=== PATIENT | female | born 1995 | race Two or more races ===

== ENCOUNTER 2025-02-23 06:00 | Day surgery (SDC) | payer OTHER ==
[2025-02-19 10:50] VITALS: BP 111/76
[2025-02-19 11:07] LABS: BASO % 0.4 % (0.1-1.2); EOS # 0.13 (0.04-0.54); EOS % 1.9 % (0.7-7.0); HEMATOCRIT 41.5 % (34.1-44.9); HEMOGLOBIN 13.6 g/dL (11.2-15.7); LYMPH # 2.25 (1.18-3.74); LYMPH % 33.3 % (19.3-53.1); MEAN CORPUSCULAR HEMOGLOBIN 28.6 pg (25.6-32.2); MONO # 0.36 (0.24-0.82); MONO % 5.3 % (4.7-12.5); NEUT # 3.97 (1.56-6.13); PLATELET COUNT 194 K/uL (163-369); RED BLOOD COUNT 4.75 M/uL (3.93-5.22); RED CELL DISTRIBUTION WIDTH 12.6 % (11.6-14.4)
[2025-02-19 11:38] LABS: INR 1.02; PARTIAL THROMBOPLASTIN TIME 24.8 SECONDS (22.0-34.0); PROTHROMBIN TIME 11.1 SECONDS (9.0-11.5)
[2025-02-19 11:48] LABS: ALBUMIN 3.7 gm/dL (3.4-5.0); BILIRUBIN TOTAL 0.29 mg/dL (0.3-1.2); CALCIUM 9.2 mg/dL (8.5-10.1); CREATININE SERUM 0.62 mg/dL (0.55-1.02); GFR 113.02; GLOBULINA 3.5 G/DL (2.4-3.5); POTASSIUM 4.77 mEq/L (3.5-5.1); TOTAL PROTEIN 7.2 gm/dL (6.4-8.2)
[~2025-02-23] VITALS: Ht 157.5 cm; Wt 65.3 kg
[2025-02-23] MEDS ORDERED: CEFTRIAXONE SODIUM 2,000 MG VIAL ONE (07:58)
[2025-02-23] MEDS ORDERED: METRONIDAZOLE/SODIUM CHLORIDE 500 MG/100 ML PIGGYBACK IV ONE (07:58)
[2025-02-23] MEDS ORDERED: POVIDONE-IODINE 118 ML BOTT TOP ONE (11:51)
[2025-02-23] MEDS ORDERED: DIBUCAINE 30 GM TUBE ONE (11:51)
[2025-02-23] MEDS ORDERED: HEMOSTATIC MATRIX 1 KIT KIT TOP ONE (11:51)
[2025-02-23] MEDS ORDERED: BUPIVACAINE HCL/MPF 0.5% 30ML VIAL ONE (11:51)
[2025-02-23] MEDS ORDERED: BUPIVACAINE LIPOSOME/PF 266 MG/20 ML VIAL IJ ONE (11:53)
[2025-02-23] MEDS ORDERED: TAMSULOSIN HCL 0.4 MG CAP PO ONE ×2 (12:30→15:47)
[2025-02-23] MEDS ORDERED: OXYCODONE HCL5 MG PO ×2 (12:40)
== END 2025-02-23 17:45 | disposition home or self-care (01) ==
LOC: CIR.AMB 06:00
PROVIDERS: ATTEND Surgery
DX: K64.2 Third degree hemorrhoids (principal); K64.4 Residual hemorrhoidal skin tags; K62.5 Hemorrhage of anus and rectum

== ENCOUNTER 2025-03-03 14:28 | Emergency (ER) | payer OTHER ==
[~2025-03-03] VITALS: Ht 157.5 cm; Wt 65.3 kg
[~2025-03-03 14:28] MED LIST: OXYCODONE HCL5 MG PO
== END 2025-03-03 19:30 | disposition home or self-care (01) ==
LOC: ER 14:34
DX: K62.5 Hemorrhage of anus and rectum (principal); K64.9 Unspecified hemorrhoids